=== PATIENT | male | born 1945 ===

== ENCOUNTER 2019-06-29 17:04 | Inpatient (IN) | payer MEDICARE, BC ==
--- NOTE | 2019-06-29 18:40 | PDOC.FPRHP ---
- History of Present Illness Chief Complaint: Abdominal Pain, Constipation History of Present Illness: Patient is a 74 yo male with PMHx of HTN who presents as a transfer from [facility] with complaint of abdominal pain and constipation. He was found on CT scan at that facility to have a possible colon mass and was transferred to this facility for further evaluation by GI. He states he saw his PCP earlier this week for abdominal pain & vomiting, was told to take some unknown OTC med but symptoms continued to get more severe which prompted him to go to the ED. He states he first started having lower abdominal pain one month ago. He thought it was gas. It would come and go but a week ago it got bad and became constant. He states the vomiting started 2 days ago and was non-bloody. He has not eaten anything in 4 days. He denies fever, chills, CP, SOB. Last BM was one week ago, denies bloody or dark stools. ED Course: In [place] ED was given 2 mg Morphine IM, 2 mg Morphine IV, [place] 10. Found on labs there to have WBC 16, K 3.2. CT Abd/Pelvis in [place] showed significant distension of colon with transition point, possible colon mass. Recommended GI & Surgical consults. At [facility] ED, GI-Dr. Guadarrama was consulted by ED Physician, per report he will see patient in the morning for further eval. - Allergies/Adverse Reactions Allergies Allergy/AdvReac Type Severity Reaction Status Date / Time No Known Allergies Allergy Unverified 06/29/19 19:47 - Home Medications Comments: per [facility] records: Atorvastatin 20 mg, Carvedilol 6.25 mg, Clopidogrel 75 mg, Entresto 49/51 mg, Furosemide 40 mg, Hyoscyamine sulfate 0.125 mg, Spironolactone 25 mg, Tramadol 50 mg - History PMHx: HTN, PR in 2015, HLD, CHF (per pt last EF 35%), hx of kidney stones PSHx: Hernia repair, Defibrillator placed 2014 FHx: denies Cancer hx in family members, mother with CAD Social: Denies drug, alcohol, or tobacco abuse. Former smoker, quit 1984 ( smoked 5-6 cigs/day before that) - Review of Systems General: denies: fever/chills, weight/appetite/sleep changes, fatigue Eyes: denies: eye pain, vision changes ENT: denies: nasal congestion, rhinorrhea Respiratory: denies: cough, congestion, shortness of breath Cardiovascular: denies: chest pain, palpitation, edema Gastrointestinal: reports: nausea, vomiting, constipation, abdominal pain. denies: diarrhea, GI bleeding Genitourinary: denies: incontinence, dysuria Skin: denies: rashes, lesions, jaundice Musculoskeletal: denies: pain, tenderness, stiffness Neurological: denies: numbness, syncope, weakness Psychological: denies: anxiety, depression - Vital signs BP: 123/51 HR: 66 RR: 16 Tmax: 98.0 Pox: 94% on ra Wt: 83 kg - Physical Exam Constitutional: NAD, awake, alert and oriented, well developed HEENT: normocephalic and atraumatic, EOMI, conjunctiva clear, no scleral icterus , grossly normal vision, grossly normal hearing, MMM Neck: supple, FROM, no JVD Heart: RRR, normal S1/S2, no murmurs/rubs/gallops, pulses present, no edema Lungs: CTAB, no respiratory distress, good air movement, no rales/rhonchi, no wheezing Abdomen: soft, non-tender, bowel sounds present, no masses/distention Musculoskeletal: normal structure, normal tone Neurological: no focal deficit, normal sensation Skin: no rash/lesions, good turgor, no jaundice Heme/Lymphatic: no unusual bruising or bleeding Psychiatric: normal mood and affect, intact recent and remote memory FMR H&P: Results - Labs Lab results: See chart for [facility] labs. Of note Na 142, K 3.2, Cl 102, CO2 28, Glucose 117, BUN 37.3, Cr 1.2, eGFR 69, Calcium 9.47, TBili 1.4, Alk phos 67, AST 24, ALT 17, Protein 7.7, Albumin 4.5. WBC 16.1, Hgb 16.4, Hct 48.7, Plt 194. DDimer 0.78. - Radiology Interpretation CT scan - abdomen Status: report reviewed by me (1. There is significant distension of the colon with stool, there is an apparent transition point in the sigmoid colon. A colonic mass must be excluded. 2. Nonobstructing right renal calcification. 3. Cholelithiasis. Small fat containing right inguinal hernia. The small bowel is normal in caliber without evidence of signficant enlargement or distension.) FMR H&P: A/P - Problem List (1) Large bowel obstruction Current Visit: Yes Status: Acute Code(s): K56.609 - UNSP INTESTNL OBST, UNSP TO PARTIAL VERSUS COMPLETE OBST (2) Hypokalemia Current Visit: Yes Status: Acute Code(s): E87.6 - HYPOKALEMIA (3) HTN (hypertension) Current Visit: Yes Status: Acute Code(s): I10 - ESSENTIAL (PRIMARY) HYPERTENSION (4) HLD (hyperlipidemia) Current Visit: Yes Status: Acute Code(s): E78.5 - HYPERLIPIDEMIA, UNSPECIFIED (5) HFrEF (heart failure with reduced ejection fraction) Current Visit: Yes Status: Acute Code(s): I50.20 - UNSPECIFIED SYSTOLIC ( CONGESTIVE) HEART FAILURE (6) Leukocytosis Current Visit: Yes Status: Acute Code(s): D72.829 - ELEVATED WHITE BLOOD CELL COUNT, UNSPECIFIED - Plan Patient is a 74 yo male who presents with abdominal pain & vomiting is found to have a suspected mass in sigmoid colon: #Large bowel obstruction -suspect d/t mass in sigmoid colon -GI consult-Dr. Guadarrama, notified by ED physician and will see in AM, appreciate recs -s/p 500 ml NS bolus, will place on maintenance IVF LR @ 125 ml/hr -NPO, will place NG tube if pt becomes distended or develops bilious emesis -Morphine prn for pain -Zofran prn for nausea #Hypokalemia -initial K 3.2 -will replete with KCl prn -monitor on AM CMP #HTN -Continue home meds #CAD, HLD -Continue home meds #HFrEF -AICD placed 2014 -per patient his last EF was 35% -continue home meds #Leukocytosis -WBC 16.1 -monitor on AM CBC Diet: NPO, ice chips okay VTE: SCDs, hold Lovenox until surgical decision made Code status: Full PCP: Dr. Lane Ashby in [place] Demand Planning Analyst: Dr. Ayad Ferguson Disposition: Stable, admit to inpatient on medical unit. Await GI eval in AM, appreciate further recs. Anticipate LOS >2 days. FMR H&P: Upper Level - Plan Date/Time: 06/29/191837 I, Hi Alcaraz, , have evaluated this patient and agree with findings/plan as outlined by internet marketer resident. Pertinent changes/additions are listed here. This is a 74 yo male with a pmh of HTN and a surgical history of a hernia repair who presents from [place] ER with a large bowel obstruction and a mass. He was initially seen in the ER for a progressive abdominal pain that started a month ago off and on and acutely worsened in the past week prompting him to visit his PCP and later the ER. He reports he was also having non-bloody vomit. He currently denies nausea, vomiting, headache, dizziness, SOB, or chest pain. He denies bloody or dark stools. In the outside ER he received [place] 10 x1 and Morphine 4mg IV. He was also found to have a potassium of 3.3 which was replaced at the outside ER. Here, Dr. Guadarrama was consulted from the ER with plans to see him in the morning. The Objective: Vitals: BP 123/51, HR 66, RR 16, Temp 98.0, SpO2 94% on RA, WT 83 kg General: NAD HEENT: AT/NC, MMM Cardio: RRR Respiratory: CTAB, good air movement Abdomen: Soft, mild tenderness to palpation, decreased BS Extremities: Pulses present, cap refill <2 seconds, no edema Please see internet marketer note for further information regarding pt's care A/P Presumptive Large bowel obstruction -Admit to medical -maintenance IVFs -NPO, will place NG tube if pt becomes nauseated -Dr. Guadarrama has been consulted, will see pt in the morning -Morphine for pain management Abdominal mass -Work up per GI Hypokalemia -Replaced, will monitor with daily BMPs HTN -Continue home meds CAD -Continue home meds HFrEF, with AICD Code: Full Prophylaxis: SCDs Family: None at bedside Fluids: LR 125ml/hr Diet: NPO Disposition: DC in 2-3 days PCP: Dr. Ashby in [place] Addendum - Attending - Attending Attestation Date/Time: 06/29/192127 I personally evaluated the patient and discussed the management with Dr. Smith. I agree with the History, Examination, Assessment and Plan documented above with any addition or exceptions noted below.
[2019-06-29] MEDS ORDERED: Ondansetron PF 4 MG/2 ML Vial ONE (18:44)
[2019-06-29 19:37] VITALS: BMI 24.6
[2019-06-29] MEDS ORDERED: Acetaminophen 650 MG Suppository PR PRN (19:46)
[2019-06-29] MEDS ORDERED: Ondansetron ODT 4 MG TAB PO PRN (19:46)
[2019-06-29] MEDS ORDERED: Acetaminophen 325 MG TAB PO PRN ×2 (19:46→19:47)
[2019-06-29] MEDS ORDERED: Ondansetron PF 4 MG/2 ML Vial IVP PRN ×2 (19:46→19:47)
[2019-06-29] MEDS ORDERED: Senokot S 8.6-50 MG TAB PO PRN (19:46)
[2019-06-29] MEDS ORDERED: Calcium Carbonate 500 MG ChewTAB PO PRN (19:46)
[2019-06-29] MEDS ORDERED: Ondansetron ODT 4 MG TAB SL PRN (19:47)
[2019-06-29] MEDS ORDERED: Sodium Chloride 0.9% 1,000 ML IV SCH (19:47)
[2019-06-29] MEDS ORDERED: Potassium Chloride 20 MEQ/100 ML PREMIX BAG IVPB SCH (20:00)
[2019-06-29] MEDS: Lactated Ringer's 1,000 ML IV SCH (20:15)
[2019-06-29] MEDS: Morphine 2 MG/ML SYRINGE SLOW IVP PRN (21:09)
[2019-06-30] MEDS: Morphine 2 MG/ML SYRINGE SLOW IVP PRN ×2 (01:21→06:56)
[2019-06-30] MEDS: Lactated Ringer's 1,000 ML IV SCH ×2 (05:19→13:52)
--- NOTE | 2019-06-30 06:08 | PDOC.FM ---
- Subjective Subjective: Pt feeling well this morning. States that his abdominal pain comes and goes, is never severe. Has continued to not have bowel movement since admission. No current abdominal pain. Thinks he is still passing flatus. States his heart problems were all addressed >5 years ago and have been stable on his medications ever since. - Objective Vital Signs & Weight: Vital Signs (12 hours) Temp Pulse Resp BP Pulse Ox 06/30/19 03:49 98 F 72 16 128/60 97 06/29/19 19:36 98 F 73 16 134/63 95 Weight Weight 82.372 kg Result Diagrams: 06/30/19 06:30 06/30/19 06:30 Phys Exam - Physical Examination Constitutional: NAD HEENT: moist MMs, sclera anicteric Neck: full ROM Respiratory: clear to auscultation bilateral Cardiovascular: RRR, no significant murmur Gastrointestinal: soft, no distention Hypoactive BS, minimal diffuse tenderness Musculoskeletal: no edema, pulses present Neurological: moves all 4 limbs Psychiatric: normal affect, A&O x 3 Skin: cap refill <2 seconds Dx/Plan (1) HFrEF (heart failure with reduced ejection fraction) Code(s): I50.20 - UNSPECIFIED SYSTOLIC (CONGESTIVE) HEART FAILURE Status: Acute (2) HLD (hyperlipidemia) Code(s): E78.5 - HYPERLIPIDEMIA, UNSPECIFIED Status: Acute (3) HTN (hypertension) Code(s): I10 - ESSENTIAL (PRIMARY) HYPERTENSION Status: Acute (4) Hypokalemia Code(s): E87.6 - HYPOKALEMIA Status: Acute (5) Large bowel obstruction Code(s): K56.609 - UNSP INTESTNL OBST, UNSP TO PARTIAL VERSUS COMPLETE OBST Status: Acute (6) Leukocytosis Code(s): D72.829 - ELEVATED WHITE BLOOD CELL COUNT, UNSPECIFIED Status: Acute - Plan Plan: Patient is a 74 yo male who presents with abdominal pain & vomiting is found to have a suspected mass in sigmoid colon: Large bowel obstruction -suspect d/t mass in sigmoid colon -GI consult-Dr. Guadarrama, to see pt this morning, appreciate recs -NPO -Hold plavix for now -Morphine prn for pain -Zofran prn for nausea Hypokalemia - resolved -initial K 3.2, now 3.7 after replacement HTN -Continue home meds CAD, HLD -Continue home meds -Hold plavix HFrEF -AICD placed 2014 -per patient his last EF was 35% -continue home meds Leukocytosis -WBC 16.1 -monitor on AM CBC Diet: NPO, ice chips okay VTE: SCDs, hold Lovenox until surgical decision made Code status: Full PCP: Dr. Lane Ashby in [place] Trouble Tracer: Dr. Ayad Ferguson Disposition: Inpt onc. Await consult and management decisions per GI Dr. Guadarrama. Medically optimizing for possible operation in near future. Pt is otherwise very stable currently. Addendum - Attending - Attending Attestation Date/Time: 06/30/19 9420 I personally evaluated the patient and discussed the management with Dr. Emmanuel. I agree with the History, Examination, Assessment and Plan documented above with any addition or exceptions noted below. Patient without pain. Awaiting GI recs but anticipate will need surgical consult for this likely mass causing LBO. Holding Plavix at this time.
[2019-06-30 06:36] LABS: #Monocytes 0.9 thou/uL (0.11-0.59); #Neutrophils 9.6 thou/uL (1.40-6.50); %Basophils 0.1 % (0.0-1.0); %Eosinophils 0.2 % (0.0-10.0); %Lymphocytes 15.8 % (21.0-51.0); %Monocytes 7.1 % (0.0-10.0); %Neutrophils 76.9 % (42.0-75.0); Hemoglobin 13.8 g/dL (14.0-18.0); Mean Corpuscular HGB CONC 33.7 g/dL (32.0-36.0); Mean Corpuscular Hemoglobin 31.6 pg (27.0-31.0); Mean Corpuscular Volume 93.8 fL (78.0-98.0); Mean Platelet Volume 8.2 fL (7.4-10.4); Platelet Count 136 thou/uL (130-400); RBC Distribution Width 12.4 % (11.5-14.5); Red Blood Cell (RBC) Count 4.37 mill/uL (4.70-6.10); White Blood Cell (WBC) Count 12.5 thou/uL (4.8-10.8)
[2019-06-30 07:00] LABS: ALT (SGPT) 10 U/L (8-55); AST (SGOT) 19 U/L (5-34); Albumin 3.3 g/dL (3.4-4.8); Alkaline Phosphatase 47 U/L (40-110); Anion Gap 10 mmol/L (10-20); BUN (Urea Nitrogen) 35 mg/dL (8.4-25.7); Bilirubin, Total 1.1 mg/dL (0.2-1.2); Calc. Creatinine Clearance 76 mL/min (70-130); Calcium 8.5 mg/dL (7.8-10.44); Carbon Dioxide 28 mmol/L (23-31); Chloride 106 mmol/L (98-107); Estimated GFR-MDRD 75; Globulin 2.5 g/dL (2.4-3.5); Glucose 103 mg/dL (83-110); Potassium 3.7 mmol/L (3.5-5.1); Protein, Total 5.8 g/dL (5.8-8.1); Sodium 140 mmol/L (136-145)
[2019-06-30] MEDS: Sacubitril 49 MG/Valsartan 51 MG TABLET PO SCH ×2 (08:14→22:10)
[2019-06-30] MEDS: Atorvastatin Calcium 20 MG TAB PO SCH (08:14)
[2019-06-30] MEDS: Carvedilol 6.25 MG TAB PO SCH ×2 (08:14→22:10)
[2019-06-30] MEDS: Spironolactone 25 MG TAB PO SCH ×2 (08:15→22:10)
[2019-06-30] MEDS: Furosemide 40 MG TAB PO SCH ×2 (08:15→08:20)
[2019-06-30] MEDS ORDERED: Dexamethasone 20 MG/5 ML VIAL ONE ×2 (08:48→15:07)
[2019-06-30] MEDS ORDERED: Bupivacaine HCl 0.5%/Epinephrine 1:200,000/PF 30 ml Vial ONE (08:48)
[2019-06-30] MEDS ORDERED: Clopidogrel Bisulfate 75 MG TAB PO SCH (09:00)
[2019-06-30] MEDS ORDERED: Morphine 2 MG/ML SYRINGE ONE (12:17)
[2019-06-30] MEDS ORDERED: PROPOFOL 200 MG/20 ML VIAL ONE ×2 (12:48→15:07)
[2019-06-30] MEDS ORDERED: Lidocaine 1% PF 5 ML VIAL ONE ×2 (12:48→17:02)
[2019-06-30] MEDS ORDERED: EPHEDRINE 25 MG/5 ML SYRINGE ONE (12:48)
[2019-06-30] MEDS ORDERED: PHENYLEPHRINE-NS 100 MCG/ML 10 ML SYRINGE ONE (12:48)
[2019-06-30] MEDS ORDERED: Promethazine HCl 25 MG/ML VIAL SLOW IVP PRN (13:20)
[2019-06-30] MEDS ORDERED: Ondansetron HCl/PF 4 MG/2 ML Vial IVP PRN ×3 (13:20→15:46)
[2019-06-30] MEDS ORDERED: Promethazine HCl 25 MG/ML VIAL IM PRN ×3 (13:20→16:33)
[2019-06-30] MEDS ORDERED: Fentanyl 100 MCG/2 ML VIAL ONE ×3 (14:20→16:37)
[2019-06-30] MEDS ORDERED: Ondansetron PF 4 MG/2 ML Vial ONE (15:07)
[2019-06-30] MEDS ORDERED: Succinylcholine Chloride 20 MG/ML 10 ml SYRINGE FS ONE (15:07)
[2019-06-30] MEDS ORDERED: Rocuronium Bromide 10 MG/ML (10ML VIAL) ONE (15:07)
[2019-06-30] MEDS ORDERED: Ketorolac Tromethamine 30 MG/ML VIAL ONE (15:07)
[2019-06-30] MEDS ORDERED: Glycopyrrolate 0.2 MG/ML 5 ML SYRINGE ONE (15:07)
[2019-06-30] MEDS ORDERED: Ondansetron PF 4 MG/2 ML Vial IVP PRN ×2 (15:46→16:33)
[2019-06-30] MEDS ORDERED: Zolpidem Tartrate 5 MG TAB PO PRN (15:46)
[2019-06-30] MEDS ORDERED: diphenhydrAMINE 50 MG/ML VIAL IVP PRN (15:46)
[2019-06-30] MEDS ORDERED: diphenhydrAMINE 25 MG CAP PO PRN (15:46)
[2019-06-30] MEDS ORDERED: fentaNYL Citrate/PF 2,000 MCG in Sodium Chloride 0.9% 60 ML IV PRN (15:46)
[2019-06-30] MEDS ORDERED: diphenhydrAMINE 50 MG/ML VIAL IM PRN (15:46)
[2019-06-30] MEDS ORDERED: Naloxone HCl 0.4 mg/ml Vial IV PRN (15:46)
[2019-06-30] MEDS ORDERED: Communication Order-Pharmacy FS SCH (16:00)
--- NOTE | 2019-06-30 16:26 | CON ---
DATE OF CONSULTATION: 06/30/2019 CHIEF COMPLAINT: Obstructing colon mass. HISTORY OF PRESENT ILLNESS: A 74-year-old man, who was transferred from the [facility] with history of abdominal pain and constipation. CT scan done at that facility revealed a possible distal colon mass. He was admitted to [facility] in [place]. He had a history of abdominal pain and vomiting. He underwent a flexible sigmoidoscopy by Dr. Guadarrama earlier today with a findings of a completely obstructing mass about 25 cm from the anal verge, which had characteristics of a colon cancer. PAST MEDICAL HISTORY: His past history is significant for hypertension, myocardial infarction, congestive heart failure, history of kidney stones, defibrillator placement, hernia repair. FAMILY HISTORY: Mother had coronary artery disease. SOCIAL HISTORY: He is . Denied use of alcohol or tobacco. He did smoke, but quit in 1984. PHYSICAL EXAMINATION: GENERAL: He appears to be alert, although he is still recovering from his flexible sigmoidoscopy. HEAD, EYES, EARS, NOSE, AND THROAT: Grossly unremarkable. NECK: Without masses or lymphadenopathy. CHEST: Reveals a healed median sternotomy scar. CARDIAC: Rhythm regular. LUNGS: Clear. ABDOMEN: Moderately distended. Bowel sounds are present. No abdominal mass is palpable. EXTREMITIES: Without cyanosis or edema. NEUROLOGIC: No motor or sensory deficit noted. Findings of the endoscopy were personally discussed with Dr. Guadarrama. IMPRESSION: Complete obstruction of the distal sigmoid colon with colonic malignancy being the most likely etiology. RECOMMENDATIONS: Because he is completely obstructed and there are no other reasonable options, laparotomy with resection of the obstructing mass and creation of end-on colostomy would be my recommendation of choice. I do not think that it would be feasible or reasonable to consider doing a primary anastomosis in this particular situation. The possibility of takedown of colostomy and recreation of bowel continuity should be feasible. I spoke with his by telephone and explained all this to her and she has given her consent for the operation. We have obtained phone consent because of his recent procedure and the sedation. I did discuss all of this with him as well and he seemed to have a good understanding. Informed consent is assumed to have been given by him and his . Job ID: [id number]
[2019-06-30] MEDS ORDERED: hydrALAZINE 20 MG/ML VIAL SLOW IVP PRN (16:33)
[2019-06-30] MEDS ORDERED: Morphine 2 MG/ML SYRINGE SLOW IVP PRN (16:33)
[2019-06-30] MEDS ORDERED: Acetaminophen 325 MG TAB PO PRN (16:47)
[2019-06-30] MEDS ORDERED: Dexamethasone 4 mg/ml Vial ONE (17:02)
[2019-06-30] MEDS: D5 1/2 NS w/20 mEq KCL 1,000 ML IV SCH (18:34)
[2019-06-30] MEDS ORDERED: Sodium Chloride 0.9% (PF) 10 ML VIAL FS PRN (18:36)
[2019-06-30] MEDS ORDERED: Pantoprazole 40 MG VIAL IVP SCH (18:45)
--- NOTE | 2019-06-30 19:07 | OP ---
DATE OF PROCEDURE: 06/30/2019 PREOPERATIVE DIAGNOSIS: Obstructing sigmoid colon lesion. POSTOPERATIVE DIAGNOSIS: Obstructing sigmoid colon lesion, most consistent with colon carcinoma. PROCEDURE PERFORMED: Sigmoid colon resection with [id number] anastomosis. ANESTHESIA: General anesthesia. ANESTHESIOLOGIST: Sherry Mayes MD FINDINGS: There was obstructing lesion in the mid sigmoid colon, which was grossly consistent with a carcinoma of the colon. Suprisingly, there was a little thinning stool, located proximal to the obstruction and the degree of contamination was quite minimal, and thus, this landed itself to reconstituting bowel continuity. DESCRIPTION OF PROCEDURE: The patient was placed in supine position under general anesthesia. The abdomen was prepped with ChloraPrep and draped in a sterile fashion. After waiting the required amount of time for the ChloraPrep to dry, a midline incision was made. Bleeders were electrocoagulated. The peritoneal cavity was entered. The obstructing sigmoid colon cancer was identified. The colon was divided approximately 10 cm proximal and distal to the obstructing lesion using a MICHELLE device. The intervening sigmoid mesentery was divided with a LigaSure. The proximal colon was mobilized along the lateral peritoneal reflection and this made it possible to do a [id number] anastomosis between 2 limbs of bowel with no tension between 2 limbs of bowel as they were aligned side by side. Enterotomies were created in the bowel and the MICHELLE was placed into the bowel and the anastomosis was completed with firing of the MICHELLE. The staple line was visually inspected and there was no evidence of bleeding. The resultant defect in the bowel was closed in 2 layers with a continuous inner layer of 3-0 Vicryl and a continuous seromuscular layer of 3-0 PDS suture. The mesenteric defect was closed with 3-0 Vicryl. The abdomen was irrigated with saline. The midline fascia was approximated with continuous 0 PDS suture. The subcutaneous tissue was irrigated with saline. The skin edges were approximated with skin kezia. The blood loss was less than 50 mL. All counts were correct at the conclusion of the procedure. He was taken to the recovery room in a satisfactory condition. In the recovery room, I did speak to his by telephone call and informed her of the operative findings and the operative procedure and that he was stable at this point. Job ID: [id number]
[2019-06-30] MEDS: Famotidine 20 MG TAB PO SCH (20:26)
[2019-06-30] MEDS ORDERED: cefOXitin 2 GM in Sodium Chloride 0.9% 100 ML IVPB SCH (22:00)
[2019-06-30] MEDS: Famotidine/PF 20 mg/2ml Vial SLOW IVP SCH (22:10)
[2019-06-30] MEDS: cefOXitin Sodium/Dextrose,Iso 2 GM in Premix Bag 1 BAG IVPB SCH (22:14)
[2019-06-30] MEDS ORDERED: Sodium Chloride 0.9% 500 ML IV SCH ×2 (23:15→23:30)
[2019-07-01] MEDS: D5 1/2 NS w/20 mEq KCL 1,000 ML IV SCH ×4 (03:03→23:14)
[2019-07-01 05:02] LABS: #Lymphocytes 0.9 thou/uL (1.20-3.40); #Monocytes 0.7 thou/uL (0.11-0.59); #Neutrophils 11.3 thou/uL (1.40-6.50); %Basophils 0.1 % (0.0-1.0); %Eosinophils 0.1 % (0.0-10.0); %Lymphocytes 6.8 % (21.0-51.0); %Monocytes 5.4 % (0.0-10.0); %Neutrophils 87.6 % (42.0-75.0); Hemoglobin 12.4 g/dL (14.0-18.0); Mean Corpuscular HGB CONC 33.9 g/dL (32.0-36.0); Mean Corpuscular Hemoglobin 31.9 pg (27.0-31.0); Mean Corpuscular Volume 94.3 fL (78.0-98.0); Mean Platelet Volume 8.4 fL (7.4-10.4); Platelet Count 126 thou/uL (130-400); RBC Distribution Width 12.5 % (11.5-14.5); Red Blood Cell (RBC) Count 3.87 mill/uL (4.70-6.10); White Blood Cell (WBC) Count 12.9 thou/uL (4.8-10.8)
[2019-07-01 05:24] LABS: Anion Gap 10 mmol/L (10-20); BUN (Urea Nitrogen) 30 mg/dL (8.4-25.7); Calc. Creatinine Clearance 74 mL/min (70-130); Calcium 7.9 mg/dL (7.8-10.44); Carbon Dioxide 28 mmol/L (23-31); Chloride 106 mmol/L (98-107); Estimated GFR-MDRD 73; Glucose 188 mg/dL (83-110); Potassium 4.5 mmol/L (3.5-5.1); Sodium 139 mmol/L (136-145)
[2019-07-01] MEDS: cefOXitin Sodium/Dextrose,Iso 2 GM in Premix Bag 1 BAG IVPB SCH ×3 (05:35→22:46)
--- NOTE | 2019-07-01 06:46 | PDOC.FM ---
- Subjective Subjective: Pt complains of mild-moderate fatigue and sleepiness this morning. Instructed this is to be expected post operatively. Pt had questions about his diet that were explained. Denies much abdominal pain this morning. Agrees with current plan of care. - Objective Vital Signs & Weight: Vital Signs (12 hours) Temp Pulse Resp BP BP Pulse Ox 07/01/19 03:58 98.2 F 70 16 108/65 98 06/30/19 23:55 98.2 F 76 16 98/60 98 06/30/19 23:00 71 87/49 L 06/30/19 22:57 72 72/44 L 06/30/19 22:40 96 06/30/19 22:10 99/58 L 06/30/19 20:00 98.2 F 78 16 99/58 L 98 Weight Admit Weight 82.372 kg Weight 82.372 kg I&O: 06/29/19 06/30/19 07/01/19 06:59 06:59 06:59 Intake Total 1100 2885 Output Total 250 Balance 1100 2635 Result Diagrams: 07/01/19 04:44 07/01/19 04:43 Phys Exam - Physical Examination Constitutional: NAD HEENT: moist MMs, sclera anicteric Neck: full ROM Respiratory: clear to auscultation bilateral Cardiovascular: RRR Gastrointestinal: soft Mild diffuse tenderness, audible BS, minimal distention Musculoskeletal: no edema, pulses present Psychiatric: normal affect, A&O x 3 Dx/Plan (1) HFrEF (heart failure with reduced ejection fraction) Code(s): I50.20 - UNSPECIFIED SYSTOLIC (CONGESTIVE) HEART FAILURE Status: Acute (2) HLD (hyperlipidemia) Code(s): E78.5 - HYPERLIPIDEMIA, UNSPECIFIED Status: Acute (3) HTN (hypertension) Code(s): I10 - ESSENTIAL (PRIMARY) HYPERTENSION Status: Acute (4) Hypokalemia Code(s): E87.6 - HYPOKALEMIA Status: Acute (5) Leukocytosis Code(s): D72.829 - ELEVATED WHITE BLOOD CELL COUNT, UNSPECIFIED Status: Acute (6) Status post colon resection Status: Acute (7) Colonic mass Code(s): K63.89 - OTHER SPECIFIED DISEASES OF INTESTINE Status: Acute - Plan Plan: Patient is a 74 yo male who presents with abdominal pain & vomiting is found to have a suspected mass in sigmoid colon: Colon mass s/p sigmoid colon resection -Flex sig yesterday by Dr. Guadarrama showed fully obstructive sigmoid mass -Dr. Tovar, gen surg, consulted and performed resection with side by side anastamosis - mass described as most consistent with colon carcinoma -CEA level 3.13 Hypokalemia - resolved -K: 4.5 HTN -Had some hypotension post operatively -Will continue to hold rx until nearing baseline CAD, HLD -Continue home meds -Hold plavix HFrEF -AICD placed 2014 -per patient his last EF was 35% -continue home meds Leukocytosis -WBC 16.1 -monitor on AM CBC Diet: Currently NPO VTE: SCDs, hold Lovenox until surgical decision made Code status: Full PCP: Dr. Lane Ashby in [place] [employer] Supervisor: Dr. Ayad Ferguson Disposition: Inpt surg. S/p sigmoid colon resection. Having some hypotension so will monitor BP and restart home rx as indicated. General post operative measures. Diet and anticoag/platelets per surg recs. Addendum - Attending - Attending Attestation Date/Time: 07/01/19 5858 I personally evaluated the patient and discussed the management with Dr. Emmanuel. I agree with the History, Examination, Assessment and Plan documented above with any addition or exceptions noted below. Patient doing well, post op day 1. Await pathology. Post op mgmt per general surgery.
--- NOTE | 2019-07-01 07:52 | CON ---
DATE OF CONSULTATION: 06/30/2019 REASON FOR CONSULT: Possible colon obstruction. HISTORY OF PRESENT ILLNESS: Mr. Berrios is a pleasant 74-year-old gentleman from [place], [place], who for about 3 weeks has been having problems with his bowels. About a week ago, he stopped having bowel movements and was unable to pass gas and for several days and was actually vomiting. He had tried some enemas at home. He had tried some laxatives as well and then after talking with his PCP and not getting better, his primary physician, Dr. Ashby, instructed him to go to the emergency room. He went to [facility] [place] [facility] yesterday, had a CAT scan, which showed an obstructing type lesion in the sigmoid colon with distention of the colon above this and decompression below. He states he has not had been able to pass gas in 4 to 5 days. He has not been able to hold any food down in 4 to 5 days and he has not had a bowel movement in about a week. He is not vomiting here presently. He had the CAT scan in [place] and he was transferred here for further evaluation and treatment. He did have a colonoscopy about 10 years ago for screening, which he states was normal. He has no family history of colorectal cancer. He has no rectal bleeding. He has lost weight, which he attributes to not eating very well for the past week or two. He has no pain presently. He is not nauseated presently. PAST MEDICAL HISTORY: Coronary artery disease. He had a bypass in [place] about 10 years ago. He followed up with patient admitting representative regularly and states his heart has been doing well. Admission H and P notes he had EF about 35% a few weeks ago. He has a prior remote history of PR in 2015. He has history of hypertension, hyperlipidemia. Denies diabetes. He has a history of kidney stones. PAST SURGICAL HISTORY: Hernia repair on the left, defibrillator placement in 2015, coronary artery bypass grafting in the past. FAMILY HISTORY: Negative for colorectal cancer or liver disease. Mother has coronary artery disease. SOCIAL HISTORY: Does not drink, smoke, or use drugs. He stopped smoking in 1984. He works in [place], [place], and still working. MEDICATIONS: At home: 1. Atorvastatin. 2. Carvedilol. 3. Plavix. 4. Entresto. 5. Furosemide. 6. Antihistamine. 7. Spironolactone. 8. Tramadol. ALLERGIES: NONE KNOWN. REVIEW OF SYSTEMS: Negative for dysphagia, odynophagia, melena, hematochezia, or hematemesis. He has no chest pain, shortness of breath, dyspnea on exertion. He has had no problems with edema in his legs. He states he saw his patient admitting representative about a month ago in [place]. PHYSICAL EXAMINATION: VITAL SIGNS: Temperature 98, pulse 71, blood pressure 144/73. GENERAL: He is resting comfortably in bed. He is in no distress. HEENT: Oropharynx, no lesions. NECK: Supple without adenopathy. LYMPHATIC: There is no axillary adenopathy. There is no inguinal adenopathy. ABDOMEN: There is a small right inguinal hernia with no evidence of bowel in that. There is evidence of scar in the left inguinal region. He has a scar on his chest consistent with previous bypass surgery. His abdomen is slightly protuberant, but not overtly distended, it is not tight. There is no palpable hepatosplenomegaly. Bowel sounds are present, but of low activity. RECTAL: Deferred. EXTREMITIES: Reveal no clubbing, cyanosis, or edema. LABORATORY STUDIES: Show a white count of 12,000 this morning, hemoglobin 13.8, platelet count 136. He had sodium 140, potassium 3.7, BUN and creatinine 35 and 0.9. Liver function tests normal. Albumin 3.3. CEA 3.1. CT scan report as per the chart and admission note. I have reviewed these films with General Surgery and Radiology. He has a small inguinal ring hernia on the right with no bowel in it except a little bit of fat. He has a decompressed lower colon probably to the mid sigmoid with what appears to be an apple-core like lesion transitioning to a distended colon above this, which is floppy and redundant. There is also question of another lesion in the colon below the apple-core lesion between the apple-core lesion and the rectum. The radiologist points out on reviewing the films. There is no stool in the rectum. ASSESSMENT: 1. This is a 74-year-old gentleman who had a colonoscopy 10 years ago, now presents with obstructive colon symptoms. He probably is not completely obstructed, although he states he has not had a bowel movement or passed flatus in about a week. He does not have an overtly distended stomach or small bowel. The colon does have compensatory dilatation proximal to the obstructing lesion. This most likely would be a malignancy. I talked about this with the patient and reviewed the films with Radiology and General Surgery. After discussing with General Surgery, we are going to attempt to do a sigmoidoscopy for diagnosis and see if we can put a decompression tube above the sigmoid lesion that would possibly help facilitate a prep. Colonic stents are not available at this facility, so that is not an option. He does not need a bowel prep, which he has had done enemas for several days at home and the CT shows no evidence of residual stool in the colon. The risks, benefits, and possible complications of procedure including perforation, bleeding risk, medication aspiration were discussed with the patient. I also discussed with the patient the fact that he is going to need surgery ultimately and whether that is today or in a couple of days, it is going to need to occur before he leaves the hospital. I have also explained to him that if we are not able to get some type of relief from the obstruction that we will need him to have a surgery with unprepped colon and that would require diverting colostomy. 2. Coronary artery disease. He has significant coronary artery disease, on Plavix, but on hold for couple of days and I do not know that he has been able to get much of his medicines down the past several days. I think the bleeding risk is minimal in this procedure and will not impact our decision on proceeding. 3. History of heart failure. States his ejection fraction is 35%. He has a defibrillator. He states that was placed. He has not had it ever go off. He states his patient admitting representative has been following closely, saw a month ago, and things were "okay." He denies any symptoms of dyspnea, dyspnea on exertion, chest pain on exertion, orthopnea, paroxysmal nocturnal dyspnea, or lower extremity edema, so he has a pretty good functional status. PLAN: The plan will be for a sigmoidoscopy today with attempted decompression of the colon and biopsies if needed. We will try to place a rectal tube if we get above the obstructed area. Job ID: [id number]
[2019-07-01] MEDS: Enoxaparin Sodium 40 MG/0.4 ML SYRINGE SC SCH (09:43)
[2019-07-01] MEDS: Atorvastatin Calcium 20 MG TAB PO SCH (09:44)
[2019-07-01] MEDS: Sacubitril 49 MG/Valsartan 51 MG TABLET PO SCH ×2 (09:44→20:33)
[2019-07-01] MEDS: Famotidine 20 MG TAB PO SCH ×2 (09:44→20:34)
[2019-07-01] MEDS: Pantoprazole 40 MG VIAL IVP SCH (09:44)
[2019-07-01] MEDS: Spironolactone 25 MG TAB PO SCH ×2 (09:55→20:33)
[2019-07-01] MEDS: Furosemide 40 MG TAB PO SCH (09:55)
[2019-07-01] MEDS: Carvedilol 6.25 MG TAB PO SCH ×2 (09:56→20:32)
[2019-07-01] MEDS: Famotidine/PF 20 mg/2ml Vial SLOW IVP SCH ×2 (09:56→22:45)
--- NOTE | 2019-07-01 10:20 | OP ---
DATE OF PROCEDURE: 06/30/2019 PROCEDURE PERFORMED: Flexible sigmoidoscopy, biopsy, and tattoo. PREOPERATIVE DIAGNOSIS: Colon obstruction is identified by symptoms and CAT scan from yesterday in the sigmoid colon. POSTPROCEDURE DIAGNOSES: 1. There was a high-grade obstruction involving the sigmoid colon at 25 cm from the anorectal verge. Lumen could not be identified nor could this area be passed on probing it with a soft-tipped decompression tube wire. This appears to be a malignancy. 2. Multiple biopsies obtained from the mass. 3. Tattoo placed in 3 areas submucosally of about 3 to 5 cm downstream from the obstruction. 4. There was concern on the radiologist's part about possible mass lower down in the sigmoid or rectum and there was none seen. RECOMMENDATIONS: 1. General Surgery consultation. The patient will need a resection with a colostomy most likely. 2. The patient will need a completion colonoscopy within the year. ANESTHESIA: TIVA. PROCEDURE IN DETAIL: The patient was informed of the risks, benefits, and possible complications of endoscopy including perforation, bleeding, reaction to medication, and aspiration. Informed consent was obtained. The patient was brought to the endoscopy suite where he was sedated in a gradual fashion. Once he was comfortable, a rectal exam was performed, which was normal. The endoscope was advanced through the anal canal, through the sigmoid colon and about 25 to 30 cm from the anorectal verge, a circumferential hard area with obstruction was noted. The mucosa seemed to be infiltrated in this area. It was unclear if the mucosa was actually involved in this area or if this was more of an apple-core lesion internal to the stricture. Multiple biopsies were taken from what appeared to be the opening of the stricture and from the hard mucosa around that and submitted to Pathology. There was no way to identify this distinct lumen to pass this with the scope. Attempts were made to probe what appeared to be the ablated lumen with a flexible tip guidewire and this was unsuccessful as well. The tattoos were placed in the colon at 3 areas in mucosa just about 3 to 5 cm distal to the obstructing lesion. The retroflexed views in the rectum were normal. The sigmoid colon was otherwise normal. Scope was removed. The patient tolerated the procedure well without complications. Findings were discussed with General Surgery and the patient. Job ID: [id number]
--- NOTE | 2019-07-01 16:34 | PRG ---
DATE OF SERVICE: 07/01/2019 SUBJECTIVE: Mr. Berrios is sleeping. He is arousable. OBJECTIVE: VITAL SIGNS: Stable with a temperature of 97, pulse of 71, blood pressure 112/57. ABDOMEN: Nontender. He has a midline laparotomy scar. LABORATORY DATA: White count 12.9, hemoglobin 12.4, platelet count 126. Electrolytes are normal. BUN and creatinine are 30 and 1. ASSESSMENT: Apple-core lesions of sigmoid colon, obstructing, status post resection and primary anastomosis. Surprisingly, he did not have a lot of stool backup behind this. PLAN: 1. Await histopathology. 2. Surgical staging will determine whether or not he needs to consider adjuvant chemotherapy in the future. This can be determined in the outpatient setting. 3. He will need a completion colonoscopy within the next 6 months ideally, but definitely before the year end to make sure there are no other polyps or lesions in the colon as we were only able to examine the sigmoid to 25 cm. Job ID: [id number]
[2019-07-02] MEDS: cefOXitin Sodium/Dextrose,Iso 2 GM in Premix Bag 1 BAG IVPB SCH (05:44)
--- NOTE | 2019-07-02 07:32 | PDOC.FM ---
- Subjective Subjective: NAEO. Patient's diet advanced & barger removed yesterday. Voiding, stooling & tolerating PO but does endorse early satiety/fullness with minimal eating. Pain well controlled. - Objective MAR Reviewed: Yes Vital Signs & Weight: Vital Signs (12 hours) Temp Pulse Resp BP BP Pulse Ox 07/02/19 07:06 98.3 F 74 16 128/76 94 L 07/02/19 03:47 98.0 F 74 16 116/65 94 L 07/02/19 00:24 97.9 F 72 18 106/59 L 97 07/01/19 20:32 112/64 07/01/19 20:16 98.6 F 75 16 112/64 96 Weight Admit Weight 82.372 kg Weight 82.372 kg I&O: 07/01/19 07/02/19 07/03/19 06:59 06:59 06:59 Intake Total 2885 3425 Output Total 250 525 Balance 2635 2900 Result Diagrams: 07/02/19 07:50 07/02/19 07:50 Phys Exam - Physical Examination Constitutional: NAD HEENT: moist MMs Neck: supple, full ROM Respiratory: no wheezing, no rales, no rhonchi, clear to auscultation bilateral Cardiovascular: RRR, no significant murmur Gastrointestinal: positive bowel sounds appropriate TTP with moderate distension midline incision covered in clean, dry intact dressing Musculoskeletal: no edema Neurological: non-focal, moves all 4 limbs Psychiatric: normal affect, A&O x 3 Skin: normal turgor Dx/Plan (1) Colonic mass Code(s): K63.89 - OTHER SPECIFIED DISEASES OF INTESTINE Status: Acute (2) HFrEF (heart failure with reduced ejection fraction) Code(s): I50.20 - UNSPECIFIED SYSTOLIC (CONGESTIVE) HEART FAILURE Status: Chronic (3) HLD (hyperlipidemia) Code(s): E78.5 - HYPERLIPIDEMIA, UNSPECIFIED Status: Chronic (4) HTN (hypertension) Code(s): I10 - ESSENTIAL (PRIMARY) HYPERTENSION Status: Chronic (5) Hypokalemia Code(s): E87.6 - HYPOKALEMIA Status: Resolved (6) Leukocytosis Code(s): D72.829 - ELEVATED WHITE BLOOD CELL COUNT, UNSPECIFIED Status: Acute (7) Status post colon resection Status: Acute - Plan Plan: Patient is a 74 yo male who presented with abdominal pain & vomiting was found to have an obstructing mass in his sigmoid colon: Sigmoid colon mass post-op day #2 s/p sigmoid colon resection w/ [id number] anastomosis -Flex sig on / by Dr. Guadarrama showed fully obstructive sigmoid mass -Dr. Tovar, gen surg, consulted and performed resection with side by side anastomosis that same day. Path pending but mass description is most consistent with colon carcinoma. Per GI needs complete c-scope within 6/ months to assess for additional polyps/masses. -CEA level 3.13 -Continue routine post-op care w/ PT/OT & CM getting on board for likely placement upon d/c. Hypokalemia - resolved -K 3.6 this AM. HTN -Had some hypotension post operatively -Will resume home meds as tolerated by patient CAD, HLD -Continue home meds -Hold plavix per surg recs. HFrEF -AICD placed 2014 -per patient his last EF was 35% -continue home meds Leukocytosis -WBC 16.1--> 12.9-->16 this AM. No s/s infection. -Will continue to monitor vitals & AM CBCs closely. Normocytic anemia - Hgb 12-13. Likely 2/2 chronic disease vs. colon CA Abx: Cefoxitin (day #3) Diet: Clear liquids VTE PPX: Lovenox per GI GI PPX: IV pepcid & protonix per GI Code status: Full PCP: Dr. Lane Ashby in [place] Rehairer: Dr. Ayad Ferguson Disposition: Continue general post operative measures w/ CM/PT/OT getting on board today to assist w/ likely placement.
[2019-07-02 08:05] LABS: #Lymphocytes 2.4 thou/uL (1.20-3.40); #Monocytes 0.9 thou/uL (0.11-0.59); #Neutrophils 12.8 thou/uL (1.40-6.50); %Basophils 0.1 % (0.0-1.0); %Eosinophils 0.2 % (0.0-10.0); %Lymphocytes 14.7 % (21.0-51.0); %Monocytes 5.4 % (0.0-10.0); %Neutrophils 79.7 % (42.0-75.0); Hemoglobin 12.4 g/dL (14.0-18.0); Mean Corpuscular HGB CONC 34.7 g/dL (32.0-36.0); Mean Corpuscular Hemoglobin 32.7 pg (27.0-31.0); Mean Corpuscular Volume 94.5 fL (78.0-98.0); Mean Platelet Volume 8.4 fL (7.4-10.4); Platelet Count 146 thou/uL (130-400); RBC Distribution Width 12.5 % (11.5-14.5); Red Blood Cell (RBC) Count 3.79 mill/uL (4.70-6.10)
[2019-07-02] MEDS: D5 1/2 NS w/20 mEq KCL 1,000 ML IV SCH (08:15)
[2019-07-02] MEDS: Famotidine 20 MG TAB PO SCH ×2 (08:24→21:05)
[2019-07-02] MEDS: Sacubitril 49 MG/Valsartan 51 MG TABLET PO SCH ×2 (08:24→21:05)
[2019-07-02] MEDS: Carvedilol 6.25 MG TAB PO SCH ×2 (08:25→21:05)
[2019-07-02] MEDS: Pantoprazole 40 MG VIAL IVP SCH (08:25)
[2019-07-02] MEDS: Atorvastatin Calcium 20 MG TAB PO SCH (08:25)
[2019-07-02 08:26] LABS: Anion Gap 11 mmol/L (10-20); BUN (Urea Nitrogen) 24 mg/dL (8.4-25.7); Calc. Creatinine Clearance 70 mL/min (70-130); Calcium 8.2 mg/dL (7.8-10.44); Carbon Dioxide 23 mmol/L (23-31); Chloride 107 mmol/L (98-107); Estimated GFR-MDRD 68; Glucose 130 mg/dL (83-110); Potassium 3.6 mmol/L (3.5-5.1); Sodium 137 mmol/L (136-145)
[2019-07-02] MEDS: Famotidine/PF 20 mg/2ml Vial SLOW IVP SCH (08:26)
[2019-07-02] MEDS: Furosemide 40 MG TAB PO SCH (08:26)
[2019-07-02] MEDS: Enoxaparin Sodium 40 MG/0.4 ML SYRINGE SC SCH (09:39)
[2019-07-02] MEDS: Spironolactone 25 MG TAB PO SCH ×2 (09:39→21:08)
[2019-07-02] MEDS ORDERED: traMADol HCl 50 MG TAB PO PRN ×2 (11:17)
[2019-07-02] MEDS ORDERED: Ibuprofen 600 MG TAB PO PRN (11:17)
--- NOTE | 2019-07-02 12:56 | PRG ---
DATE OF SERVICE: 07/02/2019 SUBJECTIVE: Mr. Berrios has had a bowel movement. He states today he did have some blood in the stool. He denies abdominal pain. He asked if he could go home. OBJECTIVE: VITAL SIGNS: Temperature is 98, pulse 84, blood pressure 118/56. ABDOMEN: Slightly protuberant, nontender. Bowel sounds are although present but not a lot. Incisions clean and dry. LABORATORY DATA: White count 16.0, hemoglobin 12.4, platelet count 146. CEA was 3.1. Electrolytes normal. ASSESSMENT AND PLAN: 1. Status post resection of obstructing sigmoid colon mass. This is likely adenocarcinoma. Pathology is pending. 2. He has had a little bit of bleeding today, probably just postsurgical. There does not seem to be overt hemorrhages. He will need to be observed. 3. He has started to pass gas. PLAN: 1. Discharge home per General Surgery. Would monitor at least for today in light of his bleeding. 2. He will need a completion colonoscopy in a few months. I will arrange that. 3. Pathology will determine whether or not he needs adjunctive chemotherapy. Job ID: [id number]
--- NOTE | 2019-07-02 13:20 | PRG ---
DATE OF SERVICE: 07/02/2019 SUBJECTIVE: Jason Berrios is seen for Dr. Tovar. I will assume his care and followup. 98.5 degrees, 84, 118/56. He reports tolerating liquids without nausea or vomiting. He has had some liquid stools. He has had some blood in his stool, but it does not continue. His white count is 16, hemoglobin 12.4 today. Basic metabolic profile is normal. Glucose 103 to 180. OBJECTIVE: LUNGS: Clear to auscultation. CARDIAC: Regular rate and rhythm. No murmur or gallop. ABDOMEN: Soft. Bowel sounds present. Surgical wound looks good. EXTREMITIES: Without edema. LABORATORY DATA: Preoperative CEA level normal. CT scan of abdomen and pelvis at [facility], preoperatively normal without metastatic disease. Pathology pending from sigmoid resection and primary anastomosis two days ago. Dressing was removed. His surgical wound looks good. ASSESSMENT: Sigmoid colon cancer, pathology pending. No signs of metastatic disease. PLAN: 1. Oncology consultation as an outpatient. There is no benefit of having Oncology see him as an inpatient. In fact, since family members cannot be present, it would be better to have that visit as an outpatient and I will arrange that. We will await pathology. I am sure that he has T3-T4 disease. 2. The patient is tolerating his liquids. We will advance to full liquids, saline lock. Discontinue ATTENDANCE OFFICER and order oral analgesics and advance regular diet tomorrow. He is having bowel movements. We will plan possibly discharge later Tuesday or Tuesday pending clinical course I feels. Job ID: [id number]
[2019-07-02] MEDS: Acetaminophen 500 MG TAB PO PRN (19:21)
[2019-07-03] MEDS: Furosemide 40 MG TAB PO SCH (08:21)
[2019-07-03] MEDS: Spironolactone 25 MG TAB PO SCH (08:21)
[2019-07-03] MEDS: Famotidine 20 MG TAB PO SCH ×2 (08:22→19:40)
[2019-07-03] MEDS: Atorvastatin Calcium 20 MG TAB PO SCH (08:22)
[2019-07-03] MEDS: Sacubitril 49 MG/Valsartan 51 MG TABLET PO SCH ×2 (08:22→19:40)
[2019-07-03] MEDS: Carvedilol 6.25 MG TAB PO SCH ×2 (08:22→19:40)
--- NOTE | 2019-07-03 08:27 | PDOC.FM ---
- Subjective Subjective: NAEO. Patient did well working with PT yesterday. Denies any N/V/D/C. Voiding and stooling normally. Still has some pain with movement but controlled decently with pain meds. - Objective MAR Reviewed: Yes Vital Signs & Weight: Vital Signs (12 hours) Temp Pulse Resp BP BP Pulse Ox 07/03/19 07:57 98.0 F 78 18 133/72 95 07/03/19 03:44 97.9 F 77 18 109/66 95 07/02/19 23:36 97.5 F L 80 16 124/69 95 07/02/19 21:05 128/76 Weight Admit Weight 82.372 kg Weight 82.372 kg I&O: 07/02/19 07/03/19 07/04/19 06:59 06:59 06:59 Intake Total 3425 1989 Output Total 525 300 Balance 2900 1690 Result Diagrams: 07/02/19 07:50 07/02/19 07:50 Phys Exam - Physical Examination Constitutional: NAD HEENT: moist MMs Neck: supple, full ROM Respiratory: no wheezing, no rales, no rhonchi, clear to auscultation bilateral Cardiovascular: RRR, no significant murmur Gastrointestinal: soft, positive bowel sounds Musculoskeletal: no edema, pulses present Neurological: non-focal, moves all 4 limbs Psychiatric: normal affect, A&O x 3 Skin: no rash, normal turgor Dx/Plan (1) Colonic mass Code(s): K63.89 - OTHER SPECIFIED DISEASES OF INTESTINE Status: Acute (2) HFrEF (heart failure with reduced ejection fraction) Code(s): I50.20 - UNSPECIFIED SYSTOLIC (CONGESTIVE) HEART FAILURE Status: Chronic (3) HLD (hyperlipidemia) Code(s): E78.5 - HYPERLIPIDEMIA, UNSPECIFIED Status: Chronic (4) HTN (hypertension) Code(s): I10 - ESSENTIAL (PRIMARY) HYPERTENSION Status: Chronic (5) Hypokalemia Code(s): E87.6 - HYPOKALEMIA Status: Resolved (6) Leukocytosis Code(s): D72.829 - ELEVATED WHITE BLOOD CELL COUNT, UNSPECIFIED Status: Acute (7) Status post colon resection Status: Acute - Plan Plan: Patient is a 74 yo male who presented with abdominal pain & vomiting was found to have an obstructing mass in his sigmoid colon. Sigmoid colon mass post-op day #3 s/p sigmoid colon resection w/ [id number] anastomosis -Flex sig on 06/[address] Guadarrama showed fully obstructive sigmoid mass -Dr. Tovar, gen surg, consulted and performed resection with side by side anastomosis that same day. Path pending but mass description is most consistent with colon carcinoma. Per GI needs complete c-scope within 6/ months to assess for additional polyps/masses. -CEA level 3.13 -Continue routine post-op care. PT/OT & CM on board for assisting with dispo. Recommended HH PT. HTN -Continue home meds as tolerated. CAD, HLD -Continue home meds -Hold plavix per surg recs. HFrEF -AICD placed 2014 -per patient his last EF was 35% -continue home meds Leukocytosis -WBC 16.1--> 12.9-->16 this AM. No s/s infection. -Will continue to monitor vitals & AM CBCs closely. Normocytic anemia - Hgb 12-13. Likely 2/2 chronic disease vs. colon CA Hypokalemia, resolved Abx: None Diet: Full liquids, AAT VTE PPX: Lovenox per GI GI PPX: PO pepcid Code status: Full PCP: Dr. Lane Ashby in [place] Passenger Car Inspector: Dr. Ayad Ferguson Disposition: Continue general post operative measures w/ possible d/c today or tomorrow per general surgery with HH PT.
[2019-07-03] MEDS: Enoxaparin Sodium 40 MG/0.4 ML SYRINGE SC SCH (08:29)
[2019-07-03] MEDS: Acetaminophen 500 MG TAB PO PRN (08:30)
--- NOTE | 2019-07-03 09:26 | RAD ---
TWO VIEWS OF THE CHEST: DATE: 07/03/2019. COMPARISON: 05/15/2019. HISTORY: Colon cancer. FINDINGS: There is gaseous distension of the bowel in the upper abdomen, incompletely imaged on this exam. There is small volume free intraperitoneal air beneath the right hemidiaphragm. Slight blunting of t he costophrenic angle on the left suggests small volume left pleural fluid or and/or mild volume loss within the left lung base. There is a dual-lead transvenous AICD in stable position. Stable midlin e sternotomy wires. There is atherosclerotic calcification in the aortic arch. Lateral imaging demonstrates blunting of bilateral costophrenic angles posteriorly suggesting small v olume bilateral pleural effusions. IMPRESSION: Small bilateral pleural effusions. Incompletely imaged gaseous distention of bowel in the upper abdo men. Small volume free intraperitoneal air beneath the right hemidiaphragm, consistent with the trish ent's history of recent abdominal surgery. POS: JUSTA
--- NOTE | 2019-07-03 12:04 | PRG ---
DATE OF SERVICE: 07/03/2019 SUBJECTIVE: Jason Berrios is doing well today. He is tolerating his full liquids. He lives in [place]. He was hoping to go home today. He reports a diminishing blood in his stool with bowel movements. He is having stools, but not passing much gas. He is tolerating full liquids. OBJECTIVE: VITAL SIGNS: Temperature 98.1 degrees, pulse 86, and blood pressure 127/61. LUNGS: Clear to auscultation. CARDIAC: Regular rate and rhythm without murmur or gallop. ABDOMEN: soft, mildly distended, mildly tympanitic. LABORATORY DATA: Laboratories done today. Preoperative CEA level is normal. Preoperative CAT scan normal. PA and lateral chest x-ray obtained is unremarkable except for mild pleural effusions and postoperative changes. The patient's pathology is pending. 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 ASSESSMENT/PLAN: Near-obstructing sigmoid colon cancer, status post resection and anastomosis. I would observe him today and plan discharge home tomorrow. We will advance his diet to regular soft. The plan will be made for him to follow up with me next week to remove his kezia. Awaiting pathology. I would not consult Oncology during this hospitalization and I will arrange outpatient Oncology visit probably next week when he sees me. With an obstructive colon cancer, he probably will need Oncology input and is likely to need chemotherapy, but this will be discussed as an outpatient. Job ID: [id number]
--- NOTE | 2019-07-04 07:14 | PDOC.FM ---
- Subjective Subjective: NAEO. Patient reports pain has been well-controlled and tolerated regular diet yesterday. Voiding and stooling normally. Passing gas. - Objective MAR Reviewed: Yes Vital Signs & Weight: Vital Signs (12 hours) Temp Pulse Resp BP BP Pulse Ox 07/03/19 23:48 98.1 F 84 18 128/74 96 07/03/19 19:40 121/65 07/03/19 19:25 98.3 F 88 16 121/65 96 Weight Admit Weight 82.372 kg Weight 82.372 kg I&O: 07/03/19 07/04/19 07/05/19 06:59 06:59 06:59 Intake Total 1990 71 Output Total 300 700 Balance 1690 11 Result Diagrams: 07/02/19 07:50 07/02/19 07:50 Phys Exam - Physical Examination Constitutional: NAD HEENT: moist MMs Neck: supple, full ROM Respiratory: no wheezing, no rales, no rhonchi, clear to auscultation bilateral Cardiovascular: RRR, no significant murmur Gastrointestinal: positive bowel sounds mildly TTP w/ mild distension, improved from yesterday Neurological: non-focal, moves all 4 limbs Psychiatric: normal affect, A&O x 3 Skin: no rash Dx/Plan (1) Colonic mass Code(s): K63.89 - OTHER SPECIFIED DISEASES OF INTESTINE Status: Acute (2) HFrEF (heart failure with reduced ejection fraction) Code(s): I50.20 - UNSPECIFIED SYSTOLIC (CONGESTIVE) HEART FAILURE Status: Chronic (3) HLD (hyperlipidemia) Code(s): E78.5 - HYPERLIPIDEMIA, UNSPECIFIED Status: Chronic (4) HTN (hypertension) Code(s): I10 - ESSENTIAL (PRIMARY) HYPERTENSION Status: Chronic (5) Hypokalemia Code(s): E87.6 - HYPOKALEMIA Status: Resolved (6) Leukocytosis Code(s): D72.829 - ELEVATED WHITE BLOOD CELL COUNT, UNSPECIFIED Status: Acute (7) Status post colon resection Status: Acute (8) Adenocarcinoma of sigmoid colon Code(s): C18.7 - MALIGNANT NEOPLASM OF SIGMOID COLON Status: Acute - Plan Plan: Patient is a 74 yo male who presented with abdominal pain & vomiting was found to have an obstructing mass in his sigmoid colon. Sigmoid colon mass post-op day #4 s/p sigmoid colon resection w/ [id number] anastomosis -Flex sig on 06/[address] Guadarrama showed fully obstructive sigmoid mass -Dr. Tovar, gen surg, consulted and performed resection with side by side anastomosis that same day. -Path report revealed patient had invasive adenocarcinoma. Per GI needs complete c-scope within 6/ months to assess for additional polyps/masses. Per general surgery, will be set up with onc as an outpatient at f/u appt with them. -Continue routine post-op care. HTN -Continue home meds. CAD, HLD -Continue home meds HFrEF -AICD placed 2014 -per patient his last EF was 35% -continue home meds Leukocytosis -WBC 16.1--> 12.9-->16 last checked on 07/01. Still no s/s of infection. -Will continue to monitor vitals closely. Normocytic anemia - Hgb 12-13. Likely 2/2 chronic disease vs. colon CA Hypokalemia, resolved Abx: None Diet: Full liquids, AAT VTE PPX: Lovenox GI PPX: PO pepcid Code status: Full PCP: Dr. Lane Ashby in [place] [employer]: Dr. Ayad Ferguson Disposition: D/c today with close follow-up with PCP and general surgery.
[2019-07-04 08:19] VITALS: BP 137/78; TEMP 99.6
[2019-07-04] MEDS: Furosemide 40 MG TAB PO SCH (08:32)
[2019-07-04] MEDS: Atorvastatin Calcium 20 MG TAB PO SCH (08:33)
[2019-07-04] MEDS: Carvedilol 6.25 MG TAB PO SCH (08:33)
[2019-07-04] MEDS: Famotidine 20 MG TAB PO SCH (08:33)
[2019-07-04] MEDS: Spironolactone 25 MG TAB PO SCH (08:33)
[2019-07-04] MEDS: Sacubitril 49 MG/Valsartan 51 MG TABLET PO SCH (10:00)
[2019-07-04] MEDS: Enoxaparin Sodium 40 MG/0.4 ML SYRINGE SC SCH (10:00)
--- NOTE | 2019-07-04 10:16 | PRG ---
DATE OF SERVICE: 07/04/2019 SUBJECTIVE: Mr. Berrios is doing well today. He is tolerating his diet. He is not have any abdominal pain. Has recalled he had a sigmoid colon cancer, near obstructive. Endoscopic biopsy revealed adenocarcinoma. Colectomy specimen pathology pending. He may need Oncology referral pending that pathology, most likely will, but we will await pathology. He has an appointment to see me in the office next week and we will review this and arrange Oncology outpatient. The patient is tolerating his diet. PHYSICAL EXAMINATION: VITAL SIGNS: Temperature 99.6 degrees, pulse 74, blood pressures 137/78. LUNGS: Clear to auscultation. CARDIAC: Regular rate and rhythm. No murmur or gallop. ABDOMEN: Soft and nontender. Tympany has resolved. Midline wound is well healed. EXTREMITIES: Unremarkable. ASSESSMENT AND PLAN: Sigmoid colon cancer. Negative CEA level. Negative chest x-ray. [place] CAT scan negative for metastasis. Awaiting pathology from the specimen. Plan to follow up in my office next week for staple removal. He can shower and bathe with open wound, patting the wound dry. He can take Tylenol [id number]-byg-yumbsat and Ultram as needed for pain. He can also take Motrin. Would avoid lifting over 25 pounds for 6 weeks. Job ID: [id number]
--- NOTE | 2019-07-05 13:55 | DIS ---
DATE OF ADMISSION: 06/29/2019 DATE OF DISCHARGE: 07/04/2019 PRIMARY CARE PROVIDER: Lane Ashby MD RESIDENT: Kaylie Velasquez MD ADMITTING ATTENDING: Ben Mock MD DISCHARGE ATTENDING: Ray Rosenberg MD CONSULTS: 1. Gastroenterology, Dr. Chris Guadarrama. 2. General Surgery, Dr. Elijah Tovar. PROCEDURES: 1. Sigmoidoscopy on 06/30/2019 with biopsy and tattoo. 2. Sigmoid colon resection with [id number] anastomosis on 06/30/2019. 3. Chest x-ray on 07/03/2019, notable for small bilateral pleural effusions, but otherwise unremarkable. PRIMARY DIAGNOSIS: Large bowel obstruction secondary to invasive adenocarcinoma of the colon. SECONDARY DIAGNOSES: 1. Hypertension. 2. Coronary artery disease. 3. Hyperlipidemia. 4. Heart failure with reduced ejection fraction. DISCHARGE MEDICATIONS: 1. Lasix 40 mg p.o. daily. 2. Atorvastatin 20 mg p.o. daily. 3. Tramadol 50 mg p.o. q.6 hours p.r.n., #20. 4. Spironolactone 25 mg p.o. daily. 5. Entresto 49/51 mg p.o. b.i.d. 6. Carvedilol 6.25 mg p.o. b.i.d. 7. Plavix one tab p.o. 75 mg p.o. daily. 8. Levsin 0.125 mg tab p.o. daily. 9. Acetaminophen 1000 mg p.o. q.6 hours p.r.n. for pain. 10. Calcium carbonate 500 mg tab, 1,000 mg p.o. q.4 hours p.r.n. 11. Motrin 600 mg p.o. q.6 hours p.r.n. 12. Senokot-S 8.6/50 mg tabs two tabs p.o. b.i.d. p.r.n. DISCONTINUED MEDICATIONS: None. HOSPITAL COURSE: The patient is a 74-year-old gentleman with a past medical history notable for coronary artery disease, heart failure with reduced ejection fraction, and hypertension, who presented as a transfer from the [facility] after presenting there with a chief complaint of abdominal pain with associated constipation. At the outside facility, he had an abdomen and pelvic CT scan, which noted a possible colonic mass and was therefore transferred to [facility] for further evaluation with Gastroenterology. Prior to being transferred, he was given 4 of morphine and 10 of [place] and lab work at that facility was notable for leukocytosis with a white blood count of 16 and a potassium of 3.2. On arrival to the [facility], Gastroenterology, Dr. Chris Guadarrama, was consulted by the ER physician and reported he would see the patient the following morning. The patient was admitted to the surgical unit and underwent flexible sigmoidoscopy the following morning which revealed that the patient had a high-grade obstruction involving the sigmoid colon ~ 25 cm from the anorectal verge. The lumen could not be identified nor could the area be passed on probing with a soft tip decompression tube wire and appeared to be malignancy per GI. Multiple biopsies were taken and a tattoo was placed in 3 areas submucosally about 35 cm downstream from the obstruction. Shortly following a sigmoidoscopy, the patient underwent a sigmoid colon resection with [id number] anastomosis by General Surgeon, Dr. Elijah Tovar, which he tolerated well. Following his colon resection, the patient was closely monitored on the surgical unit pending pathology results and slowly regained function of his bowel and was tolerating p.o. by the date of discharge without any issues. The biopsies taken on sigmoidoscopy eventually resulted as invasive adenocarcinoma of the colon. It was therefore recommended that the patient undergo complete colonoscopic evaluation within 6 months of discharge and that he be referred to Oncology as an outpatient as he may require chemotherapy despite removing the entire mass surgically. DISPOSITION: Stable. DISCHARGE INSTRUCTIONS: 1. Location: Home. 2. Diet: Heart-healthy diet. 3. Activity: As tolerated with the exception of no lifting greater than 25 pounds for the next 6 weeks. 4. Follow-up: The patient was instructed to follow up with Dr. Kei Colón on July 12, 2019, for staple removal; Dr. Chris Guadarrama with Gastroenterology within 6 months of discharge for full colonoscopic evaluation; and his primary care provider, Dr. Lane Ashby in [place], [place], within 1 week of discharge. Job ID: [id number] [facility]
== END 2019-07-04 10:15 | disposition home or self-care (01) | DRG 330 ==
LOC: ERS 17:04 → ONC 18:43 → SURG A 06-30 18:14
PROVIDERS: ADMIT Family Medicine; ATTEND Family Medicine
PROC: 0DTN0ZZ Resection of Sigmoid Colon, Open Approach (ICD-10-PCS; principal; 2019-06-30)
PROC: 0DBN8ZX Excision of Sigmoid Colon, Via Natural or Artificial Opening Endoscopic, Diagnostic (ICD-10-PCS; 2019-06-30)
DX: C18.7 Malignant neoplasm of sigmoid colon (principal); I50.22 Chronic systolic (congestive) heart failure; K56.601 Complete intestinal obstruction, unspecified as to cause; I25.2 Old myocardial infarction; I11.0 Hypertensive heart disease with heart failure; I25.10 Atherosclerotic heart disease of native coronary artery without angina pectoris; K59.00 Constipation, unspecified; E87.6 Hypokalemia; E78.5 Hyperlipidemia, unspecified; D63.8 Anemia in other chronic diseases classified elsewhere; Z87.442 Personal history of urinary calculi; Z95.810 Presence of automatic (implantable) cardiac defibrillator; Z90.49 Acquired absence of other specified parts of digestive tract; Z95.1 Presence of aortocoronary bypass graft
CPT/HCPCS: 36415; 71046; 80048; 80053; 82378; 85025; 88305; 88309; 88313; 88341; 88342; 88361; 96361; 96374; C9113; J0670; J0694; J1100; J1650; J1885; J2001; J2270; J2405; J2704; J3010; J3480; J3490; J7050